=== PATIENT | female | born 1950 | race African-American/Black ===

== ENCOUNTER 2020-06-22 08:33 | Emergency (ER) | payer MEDICARE, SELFPAY ==
--- NOTE | ~2020-06-22 | XR_ITS ---
XR shoulder RT min 2V 06/22/2020 09:14 Indication: Right shoulder pain after fall Procedure: 4 views right shoulder Comparison: No prior studies for comparison. Findings: There is a proximal right humeral metadiaphyseal fracture, age-indeterminate. There is surr ounding callus formation and periosteal reaction. 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 There are multiple loose bodies adjacent to the joint space. Osteopenia. There is mild later al displacement and angulation of the proximal humeral fracture. Impression: 1: Mildly displaced, angulated right proximal humeral metadiaphyseal fracture, age indeterminate. Reviewed, dictated and finalized at location A. Impression: 1: Mildly displaced, angulated right proximal humeral metadiaphyseal fracture, age indeterminate.
[2020-06-22 08:53] VITALS: BP 100/67; PULSE 95; RESP 14; TEMP 35.9; O2SAT 99
--- NOTE | 2020-06-22 09:08 | ED.GENADULT ---
HPI - General Adult General Chief complaint: Extremity Injury, Upper Stated complaint: right shoulder pain Time Seen by Provider: 06/22/20 08:41 Source: patient History of Present Illness HPI narrative: Patient is a 70 y/o female complaining of right shoulder pain after a fall around 2:00 AM this morning. She states that she has balance problems and she is supposed to use a cane. However, she did no use the cane when she fell. She states that her right shoulder hit the wall. She describes her pain as sharp and rates her pain as 10/10. Movement aggravates the pain. She denies other injury. She denies hitting her head. She has no LOC. She has no headache, neck pain, back pain, chest pain or abdominal pain. Related Data Allergies Allergy/AdvReac Type Severity Reaction Status Date / Time No Known Allergies Allergy Unverified 06/01/17 14:57 Review of Systems Constitutional: Constitutional: Denies chills, Denies fever(s), Denies headache(s) and Denies weakness Eyes: Eyes: Denies blurry vision ENT: Denies headache(s) and Denies neck pain Cardiovascular: Cardiovascular: Denies chest pain and Denies dyspnea Respiratory: Respiratory: Denies cough and Denies dyspnea Gastrointestinal: Gastrointestinal: Denies abdominal pain, Denies diarrhea, Denies nausea and Denies vomiting Genitourinary: Genitourinary: Denies hematuria and Denies dysuria Musculoskeletal: Musculoskeletal: Denies back pain, Reports arthralgias (right shoulder pain) and Denies neck pain Neurologic: Denies headache(s) and Denies weakness Exam Const: General: no acute distress and well developed Orientation/consciousness: oriented to person, oriented to place, oriented to time and patient oriented x3 HENMT: Head: normocephalic Ears: external ears normal General nose exam: Normal external nose present Eyes: General: appearance normal, both eyes and all related structures Conjunctivae: conjunctivae normal Neck: Neck: normal visual inspection and full ROM Chest: Chest palpation & inspection: normal inspection of the chest and no tenderness Resp: Effort & Inspection: normal respiratory effort Auscultation: clear to auscultation bilaterally Cardio: Rate: regular rate Rhythm: regular rhythm GI: GI Palp: No abdominal tenderness and Yes Soft to palpation Skin: General skin exam: normal color and turgor normal Neuro: General: oriented to person, oriented to place, oriented to time and patient oriented x3 Cognition (Neuro): normal cognition Extrem: General: normal to inspection and no pedal edema Right upper extremity: shoulder/upper arm tenderness and swelling and Extremity exam: right hand other (neurovascular intact) Psych: Appearance: grossly normal Mental Status: mental status grossly normal Affect: normal affect Course Consultations Consultation #1: Discussed with Dr. Gilmore (ortho), who reviewed Xray and recommends transfer. Date: 06/22/20 Time: 09:42 Consultation #2: Discussed with Dr. Cedeño (EDP) at [facility], who agrees to accept the patient for transfer. Date: 06/22/20 Time: 10:00 Vital Signs Vital signs: Vital Signs Temperature 35.9 C L 06/22/20 08:53 Pulse Rate 95 06/22/20 08:53 Respiratory Rate 14 06/22/20 08:53 Blood Pressure 100/67 06/22/20 08:53 Pulse Oximetry 99 06/22/20 08:53 Temperature 35.9 C L 06/22/20 08:53 Pulse Rate 95 06/22/20 08:53 Respiratory Rate 14 06/22/20 08:53 Blood Pressure 100/67 06/22/20 08:53 Pulse Oximetry 99 06/22/20 08:53 Medical Decision Making Vital Signs Vital Signs: Vital Signs Temperature 35.9 C L 06/22/20 08:53 Pulse Rate 95 06/22/20 08:53 Respiratory Rate 14 06/22/20 08:53 Blood Pressure 100/67 06/22/20 08:53 Pulse Oximetry 99 06/22/20 08:53 Temperature 35.9 C L 06/22/20 08:53 Pulse Rate 95 06/22/20 08:53 Respiratory Rate 14 06/22/20 08:53 Blood Pressure 100/67 06/22/20 08:53 Pulse Oximetry 99 06/22/20 08:53 D
[2020-06-22] MEDS: HYDROcodone/acetaminophen (*CRX) 5-325 MG TABLET 1 TAB PO (09:57)
--- NOTE | 2020-06-22 10:42 | PC.NURSE ---
contacted [facility] to transfer patient to [facility] in route
[2020-06-22 11:00] VITALS: BP 140/65; PULSE 70; RESP 12; O2SAT 99
--- NOTE | 2020-06-22 11:15 | PC.NURSE ---
[facility] has arrived
== END 2020-06-22 11:00 | disposition short-term general hospital (02) ==
PROVIDERS: Emergency Provider Emergency Medicine
DX: S49.091A Other physeal fracture of upper end of humerus, right arm, initial encounter for closed fracture (principal); W18.39XA Other fall on same level, initial encounter
CPT/HCPCS: 73030; 99285; A9270

== ENCOUNTER 2023-03-10 10:19 | Emergency (ER) | payer MEDICARE, SELFPAY ==
--- NOTE | ~2023-03-10 | CT_ITS ---
EXAMINATION: CT abdomen pelvis w con DATE: 03/10/2023 13:29 INDICATION: Left lower quadrant pain TECHNIQUE: Computed tomography (CT) of the abdomen and pelvis was performed with 100 cc Omnipaque 350 intravenous contrast. The dose-length product was 943.42 mGy-cm. Automated exposure control and iter ative reconstruction technique were employed. COMPARISON: None. FINDINGS: Lung bases unremarkable. No significant pleural or pericardial effusion. Heart size normal. There are changes of gastric bypass surgery. Fatty infiltration of the liver. The spleen, pancreas, adrenal glands and kidneys are unremarkable. There is submucosal fatty infiltration of the colonic mu cosa. There is segmental colonic wall thickening of the descending colon, mild lumbar spondylosis. Mo derate osteoarthritis of the hips. Sigmoid colon and proximal rectum, suspicious for colitis. No evid ence for diverticulitis. No significant vascular abnormality. No lymphadenopathy. Small hiatal hernia . IMPRESSION: 1. Segmental wall thickening of the descending and sigmoid colon, suspicious for colitis, most likely infectious or inflammatory. Reviewed, dictated and finalized at location B. [employer] IMPRESSION: 1. Segmental wall thickening of the descending and sigmoid colon, suspicious fo r colitis, most likely infectious or inflammatory.
[2023-03-10 10:45] VITALS: BP 131/61; PULSE 55; RESP 14; TEMP 36.8; O2SAT 100
[2023-03-10 11:01] LABS: Basophils Percent Auto 0.1 % (0.2-1.2); Eosinophils Absolute Auto 0.1 K/mm3 (0-0.3); Eosinophils Percent Auto 0.8 % (0-4.4); Hematocrit 35.1 % (37.0-47.0); Hemoglobin 10.6 g/dL (12.0-15.0); Immature Granulocyte Absolute 0.02 K/mm3 (0.00-0.031); Immature Granulocyte Percent A 0.2 % (0-0.5); Lymphocytes Absolute Auto 1.74 K/mm3 (0.9-3.2); Lymphocytes Percent Auto 20.3 % (18.3-44.2); Mean Corpuscular HGB Conc 30.2 g/dl (32-36); Mean Corpuscular Volume 89.3 fl (80-100); Mean Platelet Volume 10.9 fl (7.4-10.4); Monocytes Absolute Auto 0.6 K/mm3 (0.1-0.6); Monocytes Percent Auto 7.3 % (2.6-8.5); Neutrophils Absolute Auto 6.1 K/mm3 (1.3-6.7); Neutrophils Percent Auto 71.3 % (45.5-73.1); Platelet Count Result 233 k/mm3 (150-375); Red Blood Count 3.93 M/mm3 (4.2-5.4); Red Cell Distribution Width 15.5 % (11.5-14.5); White Blood Count 8.6 K/mm3 (4.5-10.0)
[2023-03-10 11:18] LABS: Alanine Aminotransferase 16 U/L (6-35); Albumin Level 3.4 g/dL (3.5-5.1); Alkaline Phosphatase 84 U/L (38-126); Anion Gap 2 mmol/L (8-16); Aspartate Amino Transferase 24 U/L (14-36); Bilirubin,Total 0.4 mg/dL (0.2-1.3); Blood Urea Nitrogen 9 mg/dL (7-17); Calcium 7.7 mg/dL (8.4-10.2); Carbon Dioxide 25 mmol/L (22-30); Chloride 114 mmol/L (98-107); Estimated CRCL calculation 41 ml/min; Estimated Glomerular Filt Rate 59; Glucose 97 mg/dL (65-110); Lipase 83 U/L (23-300); Potassium 3.8 mmol/L (3.4-5.0); Sodium 141 mmol/L (137-145)
--- NOTE | 2023-03-10 12:14 | ED.GENADULT ---
HPI - General Adult General Chief complaint: Abdominal Pain Stated complaint: abd pain/diarrhea Time Seen by Provider: 03/10/23 11:39 History of Present Illness HPI narrative: 89 female presents to the emergency department for evaluation of nausea and diarrhea. Patient reports that the symptoms started last night. Patient also reports left lower quadrant abdominal cramping. Patient denies any actual emesis and denies any blood in her stool. Patient denies any pain with urination. Related Data Allergies Allergy/AdvReac Type Severity Reaction Status Date / Time No Known Allergies Allergy Unverified 03/10/23 11:37 Review of Systems Review of Systems: All systems reviewed & are unremarkable except as noted in HPI and below Exam Narrative: APPEARANCE: Well appearing, no pain, no distress, well-nourished. HEAD: normocephalic, atraumatic. EYES: PERRLA/EOMI, conjunctivae clear. NOSE: Normal no drainage EARS:TMS clear with good light reflex. THROAT: Pharynx clear, no exudate. NECK: Supple. No adenopathy, no masses. RESPIRATORY: Airway patent, respirations nonlabored. Clear to auscultation bilaterally, no rales, rhonchi, wheezing. CARDIOVASCULAR: Regular rate and rhythm without murmurs rubs or gallops. ABDOMINAL: Soft, left lower quadrant tenderness to palpation MUSCULOSKELETAL: Moves all extremities. Strength/ROM intact, No edema, No calf tenderness. NEURO: Alert. Cranial nerves II through XII intact. Grossly intact SKIN: Warm, dry. Normal Color Course Course Emergency Course: 72-year-old female presenting to the ED for evaluation nausea and vomiting. CT was concerning for colitis. Vital Signs Vital signs: Vital Signs Temperature 98.2 F 03/10/23 10:45 Pulse Rate 55 L 03/10/23 10:45 Respiratory Rate 14 03/10/23 10:45 Blood Pressure 131/61 03/10/23 10:45 Pulse Oximetry 100 03/10/23 10:45 Oxygen Delivery Room Air 03/10/23 10:45 Temperature 98.2 F 03/10/23 10:45 Pulse Rate 62 03/10/23 14:22 Respiratory Rate 18 03/10/23 14:22 Blood Pressure 131/65 03/10/23 14:22 Pulse Oximetry 100 03/10/23 14:22 Oxygen Delivery Room Air 12/08/23 10:45 Medical Decision Making Differential Diagnosis Differential Diagnosis: Colitis, diverticulitis, SBO Vital Signs Vital Signs: Vital Signs Temperature 98.2 F 03/10/23 10:45 Pulse Rate 55 L 03/10/23 10:45 Respiratory Rate 14 03/10/23 10:45 Blood Pressure 131/61 03/10/23 10:45 Pulse Oximetry 100 03/10/23 10:45 Oxygen Delivery Room Air 03/10/23 10:45 Temperature 98.2 F 03/10/23 10:45 Pulse Rate 62 03/10/23 14:22 Respiratory Rate 18 03/10/23 14:22 Blood Pressure 131/65 03/10/23 14:22 Pulse Oximetry 100 03/10/23 14:22 Oxygen Delivery Room Air 03/10/23 10:45 Lab Data Lab results reviewed: Yes I reviewed the patient's lab results. 03/10/23 10:55 03/10/23 10:55 Labs: Lab Results 03/10/23 03/10/23 Range/Units 10:55 12:39 WBC 8.6 (4.5-10.0) K/mm3 RBC 3.93 L (4.2-5.4) M/mm3 Hgb 10.6 L (12.0-15.0) g/dL Hct 35.1 L (37.0-47.0) % MCV 89.3 (80-100) fl MCH 27.0 (26-34) pg MCHC 30.2 L (32-36) g/dl RDW 15.5 H (11.5-14.5) % Plt Count 233 (150-375) k/mm3 MPV 10.9 H (7.4-10.4) fl Immature Gran % (Auto) 0.2 (0-0.5) % Neut % (Auto) 71.3 (45.5-73.1) % Lymph % (Auto) 20.3 (18.3-44.2) % Evans % (Auto) 7.3 (2.6-8.5) % Eos % (Auto) 0.8 (0-4.4) % Baso % (Auto) 0.1 L (0.2-1.2) % Lymph # (Auto) 1.74 (0.9-3.2) K/mm3 Evans # (Auto) 0.6 (0.1-0.6) K/mm3 Eos # (Auto) 0.1 (0-0.3) K/mm3 Baso # (Auto) 0.0 (0.0-0.1) K/mm3 Abs Immat Gran (auto) 0.02 (0.00-0.031) K/mm3 Absolute Neuts (auto) 6.1 (1.3-6.7) K/mm3 Absolute Nucleated RBC 0.0 (0.0-0.012) K/mm3 Nucleated RBC % 0.0 (0.0-0.2) % Sodium 141 (137-145) mmol/L Potassium 3.8 (3.4-5.0) mmol/L Chloride 114 H (98-107
[2023-03-10 12:56] LABS: Appearance Urine Cloudy (Clear); Bacteria Urine 4+ /hpf; Bilirubin Urine Negative (Negative); Blood Urine Trace (Negative); Color Urine Yellow (Yellow); Glucose Urine UA Negative (Negative); Ketones Urine Trace mg/dL (Negative); Leukocyte Esterase Ur 1+ LEU/UL (Negative); Nitrate Urine Positive (Negative); Non Pathogenic Casts 0-2; Protein Urine Trace mg/dL (Negative); RBC Urine 0-2 /hpf (0-2); Specific Grav Ur 1.017 (1.001-1.035); Squamous Epithelial Cell Urine Few /hpf (Few); pH Urine 5.5 (5.0-9.0)
[2023-03-10 13:07] LABS: Add Urine Microscopic? YES
[2023-03-10 14:22] VITALS: BP 131/65; PULSE 62; RESP 18; O2SAT 100
[2023-03-10] MEDS: AMOXICILLIN/CLAVULANATE K 875-125 MG TAB 1 TABLET PO (14:26)
== END 2023-03-10 14:33 | disposition home or self-care (01) ==
PROVIDERS: Emergency Provider Emergency Medicine
DX: K52.9 Noninfective gastroenteritis and colitis, unspecified (principal); N39.0 Urinary tract infection, site not specified
CPT/HCPCS: 36415; 74177; 80053; 81001; 83690; 85025; 87077; 87086; 87186; 96374; 99284; A9270; J0696; Q9967